=== PATIENT | female | born 1990 ===

== ENCOUNTER 2021-05-24 16:07 | Outpatient (CLI) | payer OTHER ==
[2021-05-25 10:48] LABS: SARS-CoV-2 PCR by NAA Not Detected (NotDetected)
== END 2021-05-24 16:08 | disposition home or self-care (01) ==
LOC: CSHLAB 16:07
PROVIDERS: ATTEND Internal Medicine Gastroenterology
DX: Z20.822 Contact with and (suspected) exposure to COVID-19 (principal); R10.9 Unspecified abdominal pain; R19.7 Diarrhea, unspecified; K21.9 Gastro-esophageal reflux disease without esophagitis
CPT/HCPCS: U0003; U0005

== ENCOUNTER 2021-07-18 17:22 | Outpatient (CLI) | payer OTHER ==
[2021-07-19 22:36] LABS: SARS-CoV-2 PCR by NAA Not Detected (NotDetected)
== END 2021-07-18 17:23 | disposition home or self-care (01) ==
LOC: CSHLAB 17:22
PROVIDERS: ATTEND Internal Medicine Gastroenterology
DX: Z20.822 Contact with and (suspected) exposure to COVID-19 (principal); R10.9 Unspecified abdominal pain; R19.7 Diarrhea, unspecified; K21.9 Gastro-esophageal reflux disease without esophagitis
CPT/HCPCS: U0003; U0005